=== PATIENT | female | born 1945 | race Caucasian/White ===

== ENCOUNTER 2023-12-21 12:28 | Observation (INO) | payer MEDICARE ==
[2023-12-21 13:58] LABS: #Eosinphils 0.2 10x3/uL (0.0-0.5); #Monocytes 0.5 10x3/uL (0.0-1.1); #Neutrophils 4.4 10x3/uL (1.5-8.4); %Basophils 0.6 % (0.0-2.0); %Eosinophils 2.7 % (0.0-6.0); %Lymphocytes 24.6 % (18.0-47.0); %Monocytes 6.9 % (0.0-10.0); %Neutrophils 65.1 % (40.0-75.0); Hematocrit 39.6 % (34.9-44.5); Hemoglobin 13.6 g/dL (12.0-15.5); Mean Corpuscular HGB CONC 34.3 g/dL (32.0-36.0); Mean Corpuscular Hemoglobin 29.8 pg (27.0-33.0); Mean Corpuscular Volume 86.8 fl (81.6-98.3); Mean Platelet Volume 12.1 fl (7.4-10.4); Platelet Count 202 10x3/uL (150-450); RBC Distribution Width 12.7 % (11.5-14.5); Red Blood Cell (RBC) Count 4.56 10x6/uL (3.90-5.03); White Blood Cell (WBC) Count 6.8 10x3/uL (3.5-10.5)
[2023-12-21 14:30] LABS: Troponin I Less than 0.010 ng/mL (< 0.028)
[2023-12-21 14:32] LABS: ALT (SGPT) 20 U/L (8-55); AST (SGOT) 18 U/L (5-34); Albumin 4.2 g/dL (3.4-4.8); Alkaline Phosphatase 67 U/L (40-110); Anion Gap 13 mmol/L (10-20); BUN (Urea Nitrogen) 22 mg/dL (9.8-20.1); Bilirubin, Total 0.6 mg/dL (0.2-1.2); Calc. Creatinine Clearance 0 mL/min (70-130); Calcium 9.8 mg/dL (7.8-10.44); Carbon Dioxide 24 mmol/L (23-31); Chloride 106 mmol/L (98-107); Estimated GFR 76; Globulin 2.6 g/dL (2.4-3.5); Glucose 114 mg/dL (83-110); Potassium 4.7 mmol/L (3.5-5.1); Protein, Total 6.8 g/dL (5.8-8.1); Sodium 138 mmol/L (136-145)
[2023-12-21] MEDS ORDERED: Aspirin Chewable 81 MG TAB ONE (16:20)
[2023-12-21 17:19] LABS: Troponin I Less than 0.010 ng/mL (< 0.028)
[2023-12-21] MEDS ORDERED: Dextrose 5% in Water 1,000 ML IV PRN (17:53)
[2023-12-21] MEDS ORDERED: Glucagon 1 MG/ML KIT IM PRN (17:53)
[2023-12-21] MEDS ORDERED: Dextrose 50% Abboject 50 ML SYRINGE SLOW IVP PRN (17:53)
[2023-12-21 20:17] LABS: Troponin I Less than 0.010 ng/mL (< 0.028)
[2023-12-21 21:47] LABS: Hemoglobin A1c 9.5 % (4.0-6.0)
[2023-12-21 23:41] VITALS: BMI 30.2
[2023-12-22] MEDS: Atorvastatin Calcium 20 MG TAB PO SCH (00:19)
[2023-12-22] MEDS: HumaLOG 300 UNITS/3 ML VIAL SC PRN ×2 (00:20→12:04)
[2023-12-22 03:52] LABS: Cardiac Risk 2.8 (Less than 4.5)
[2023-12-22] MEDS ORDERED: Acetaminophen 325 MG TAB PO PRN (07:34)
[2023-12-22] MEDS ORDERED: Ondansetron PF 4 MG/2 ML Vial IVP PRN (07:34)
[2023-12-22 08:36] LABS: #Eosinphils 0.2 10x3/uL (0.0-0.5); #Monocytes 0.4 10x3/uL (0.0-1.1); #Neutrophils 3.7 10x3/uL (1.5-8.4); %Basophils 0.5 % (0.0-2.0); %Eosinophils 3.2 % (0.0-6.0); %Monocytes 7.2 % (0.0-10.0); %Neutrophils 60.9 % (40.0-75.0); Hematocrit 41.7 % (34.9-44.5); Hemoglobin 14.5 g/dL (12.0-15.5); Mean Corpuscular HGB CONC 34.8 g/dL (32.0-36.0); Mean Corpuscular Hemoglobin 30.6 pg (27.0-33.0); Mean Platelet Volume 12.4 fl (7.4-10.4); Platelet Count 182 10x3/uL (150-450); RBC Distribution Width 12.6 % (11.5-14.5); Red Blood Cell (RBC) Count 4.74 10x6/uL (3.90-5.03)
[2023-12-22] MEDS: Losartan 25 MG TAB PO SCH (08:40)
[2023-12-22] MEDS: Cholecalciferol 1,000 UNITS (25 MCG) TAB PO SCH (08:40)
[2023-12-22] MEDS: Aspirin 81 mg Enteric Coated Tablet PO SCH (08:40)
[2023-12-22] MEDS: Ezetimibe 10 MG TAB PO SCH (08:42)
[2023-12-22 08:58] LABS: Anion Gap 17 mmol/L (10-20); BUN (Urea Nitrogen) 17 mg/dL (9.8-20.1); Calc. Creatinine Clearance 68 mL/min (70-130); Calcium 9.7 mg/dL (7.8-10.44); Carbon Dioxide 22 mmol/L (23-31); Chloride 105 mmol/L (98-107); Estimated GFR 74; Glucose 182 mg/dL (83-110); Potassium 4.5 mmol/L (3.5-5.1); Sodium 139 mmol/L (136-145)
[2023-12-22] MEDS: FLU VACC QS2023(65UP)/MF59C/PF 60 MCG/0.5 ML SYRINGE IM ONE (09:40)
[2023-12-23] MEDS: Ondansetron ODT 4 MG TAB PO PRN (08:19)
[2023-12-23] MEDS ORDERED: Iopamidol 300 61% 100 ML VIAL FS ONE (08:57)
[2023-12-23 12:34] VITALS: BP 172/86; TEMP 97.8
[2023-12-23] MEDS ORDERED: Metoprolol Tartrate 25 MG TAB PO SCH (21:00)
[2023-12-24] MEDS ORDERED: Lantus 1000 UNITS/10 ML VIAL SC SCH (09:00)
== END 2023-12-23 16:53 | disposition home or self-care (01) ==
LOC: CSHERS 12:28 → CSHERHOLD 12:39 → CSHTELE 23:05 → CSHICU 12-22 08:33 → CSHTELE 12-22 19:46
PROVIDERS: ADMIT Family Medicine; ATTEND Nurse Practitioner Family
PROC: B246ZZZ Ultrasonography of Right and Left Heart (ICD-10-PCS; principal; 2023-12-22)
DX: R42 Dizziness and giddiness (principal); E11.9 Type 2 diabetes mellitus without complications; I25.810 Atherosclerosis of coronary artery bypass graft(s) without angina pectoris; I08.1 Rheumatic disorders of both mitral and tricuspid valves; R41.0 Disorientation, unspecified; K21.9 Gastro-esophageal reflux disease without esophagitis; F41.9 Anxiety disorder, unspecified; N39.0 Urinary tract infection, site not specified; I10 Essential (primary) hypertension; E78.5 Hyperlipidemia, unspecified; Z88.5 Allergy status to narcotic agent; Z88.1 Allergy status to other antibiotic agents; Z95.1 Presence of aortocoronary bypass graft; Z88.2 Allergy status to sulfonamides; Z88.8 Allergy status to other drugs, medicaments and biological substances; Z79.899 Other long term (current) drug therapy; Z79.84 Long term (current) use of oral hypoglycemic drugs; Z79.4 Long term (current) use of insulin; Z90.710 Acquired absence of both cervix and uterus; Z79.82 Long term (current) use of aspirin
CPT/HCPCS: 70450; 70496; 70498; 80048; 80061; 82962 ×3; 83036; 84484 ×2; 85025; 93005; 93306; 93880; 94760; 99285; G0378 ×3; 36415; 36416; 80053; 84443; J1815; Q0162; Q9967